=== PATIENT | female | born 1985 | race Hispanic/Latino ===

== ENCOUNTER 2017-01-11 08:01 | Emergency (ER) | payer MEDICAID, OTHER ==
[2017-01-11 08:07] VITALS: BP 118/76; PULSE 81; RESP 14; TEMP 99.2; O2SAT 99
--- NOTE | 2017-01-11 08:43 | C.PDOC ---
History Of Present Illness 31-year-old female, presents to the emergency department with complaints of a subjective fever, chills, and sore throat x2 days. Patient states she took Tylenol with no relief. Denies cough, shortness of breath, nausea/vomiting, diarrhea, cough, back pain, symptoms, or any other associated symptoms. No other complaints at this time. Time Seen by Provider: 01/11/17 08:24 Chief Complaint (Nursing): ENT Problem History Per: Patient History/Exam Limitations: no limitations Onset/Duration Of Symptoms: Days (2) Current Symptoms Are (Timing): Still Present Past Medical History Reviewed: Historical Data, Nursing Documentation, Vital Signs Vital Signs: Last Vital Signs Temp 99.2 F 01/11/17 08:04 Pulse 81 01/11/17 08:04 Resp 14 01/11/17 08:04 BP 118/76 01/11/17 08:04 Pulse Ox 99 01/11/17 08:49 Family History: States: Unknown Family Hx - Social History Hx Tobacco Use: No Hx Alcohol Use: No Hx Substance Use: No - Immunization History Hx Tetanus Toxoid Vaccination: No Hx Influenza Vaccination: No Hx Pneumococcal Vaccination: No Review Of Systems Except As Marked, All Systems Reviewed And Found Negative. Constitutional: Positive for: Fever, Chills ENT: Positive for: Throat Pain Respiratory: Negative for: Cough Gastrointestinal: Negative for: Nausea, Vomiting, Abdominal Pain Musculoskeletal: Negative for: Back Pain Neurological: Negative for: Weakness, Numbness, Headache, Dizziness Physical Exam - Physical Exam Appears: Non-toxic, No Acute Distress Skin: Warm, Dry, No Rash Head: Atraumatic, Normacephalic Eye(s): bilateral: Normal Inspection, EOMI Ear(s): Bilateral: Normal Nose: Normal Oral Mucosa: Moist Lips: Normal Appearing Throat: Erythema, Exudate (right tonsil), Other (swollen tonsils, non-kissing, uvula midline) Neck: Normal ROM, Supple, Other (no lymphadenopathy) Cardiovascular: Rhythm Regular Respiratory: Normal Breath Sounds, No Accessory Muscle Use Extremity: Normal ROM Neurological/Psych: Oriented x3, Normal Speech ED Course And Treatment O2 Sat by Pulse Oximetry: 99 Medical Decision Making Medical Decision Making: Impression: 31y/o F with sore throat c/w pharyngitis Plan: Patient will be discharged w/ Rx for antibiotics. Patient advised to f/u with PMD/clinic outpatient, or return if symptoms persist or worsen. Patient agreeable with plan. All questions were answered. Disposition Counseled Patient/Family Regarding: Need For Followup - Disposition Disposition: HOME/ ROUTINE Disposition Time: 08:35 Condition: STABLE Additional Instructions: Your prescription was sent to [facility] Take antibiotic twice daily Take Tylenol or Motrin alternating every 4-6 hours for Fever 100.4F or higher. Rest and drink plenty of fluids to prevent dehydration. Try vanilla ice cream to improve eating/drinking, this is cold soothing and tastes good. May also try lozenges or cepacol spray over the counter. Prescriptions: Amoxicillin [Amoxil 500 mg Cap] 500 mg PO BID #14 cap Instructions: Pharyngitis (ED) Forms: Work Excuse - POA Present On Arrival: None - Clinical Impression Clinical Impression: Pharyngitis - Scribe Statement The provider has reviewed the documentation as recorded by the Holly Arndt All medical record entries made by the Holly were at my direction and personally dictated by me. I have reviewed the chart and agree that the record accurately reflects my personal performance of the history, physical exam, medical decision making, and the department course for this patient. I have also personally directed, reviewed, and agree with the discharge instructions and disposition
== END 2017-01-11 08:55 | disposition home or self-care (01) ==
LOC: C.ER 08:01
DX: J02.9 Acute pharyngitis, unspecified (principal)

== ENCOUNTER 2017-03-28 20:08 | Emergency (ER) | payer OTHER ==
[2017-03-28 20:14] VITALS: O2SAT 100
--- NOTE | 2017-03-28 20:51 | C.PDOC ---
History Of Present Illness 31 y/o female c/o supraubic discomfort and foul vaginal discharge for 2 days. Patient also states that she feels her IUD is "hurting her". Denies fever, chills, nausea, vomiting. Time Seen by Provider: 03/28/17 20:46 Chief Complaint (Nursing): Abdominal Pain History Per: Patient History/Exam Limitations: no limitations Onset/Duration Of Symptoms: Days Current Symptoms Are (Timing): Still Present Severity: Mild Pain Scale Rating Of: 4 Location Of Pain/Discomfort: Diffuse Quality Of Discomfort: "Pain" Associated Symptoms: denies: Fever, Chills, Nausea, Vomiting, Back Pain, Urinary Symptoms Recent travel outside of the [place]: No Abnormal Vaginal Bleeding: No Past Medical History Reviewed: Historical Data, Nursing Documentation, Vital Signs Vital Signs: Last Vital Signs Temp 97.8 F 03/28/17 20:12 Pulse 65 03/28/17 20:12 Resp 16 03/28/17 20:12 BP 119/77 03/28/17 20:12 Pulse Ox 100 03/28/17 21:01 - Medical History PMH: No Chronic Diseases Family History: States: Unknown Family Hx - Social History Hx Tobacco Use: No Hx Alcohol Use: No Hx Substance Use: No - Immunization History Hx Tetanus Toxoid Vaccination: No Hx Influenza Vaccination: No Hx Pneumococcal Vaccination: No Review Of Systems Constitutional: Negative for: Fever, Chills Cardiovascular: Negative for: Chest Pain Respiratory: Negative for: Cough, Shortness of Breath Gastrointestinal: Positive for: Abdominal Pain. Negative for: Nausea, Vomiting , Diarrhea Genitourinary: Positive for: Vaginal Discharge, Pelvic Pain. Negative for: Dysuria, Hematuria Skin: Negative for: Rash Physical Exam - Physical Exam Appears: Non-toxic, No Acute Distress Skin: Warm, Dry Head: Atraumatic, Normacephalic Oral Mucosa: Moist Chest: Symmetrical Cardiovascular: Rhythm Regular, No Murmur Respiratory: Normal Breath Sounds, No Rales, No Rhonchi, No Wheezing Gastrointestinal/Abdominal: Soft, Tenderness (mild, suprapubic), No Distention, No Guarding, No Rebound Back: No CVA Tenderness Pelvic: Vaginal Discharge (whitish), No Cervical Motion Tenderness, No Adnexal Tenderness Extremity: Normal ROM, Capillary Refill (< 2 sec.) Extremity: Bilateral: Normal Color And Temperature Neurological/Psych: Oriented x3, Normal Speech, Normal Cognition ED Course And Treatment O2 Sat by Pulse Oximetry: 100 (RA) Pulse Ox Interpretation: Normal (R) Progress Note: Ultrasound ordered, reviewed. Disposition Counseled Patient/Family Regarding: Studies Performed, Diagnosis, Need For Followup, Rx Given - Disposition Referrals: [facility] [Outside] [facility] [Outside] Disposition: HOME/ ROUTINE Disposition Time: 20:50 Condition: FAIR Additional Instructions: Please return if symptoms recur Prescriptions: Fluconazole [Diflucan] 200 mg PO DAILY #5 tab Nitrofurantoin Macrocrystals [Macrobid] 1 cap PO BID #14 cap Instructions: Urinary Tract Infection in Women (DC), Vulvovaginal Candidiasis ( ED) - Clinical Impression Clinical Impression: UTI (urinary tract infection), [place] vaginitis, IUD (intrauterine device) in place - Scribe Statement The provider has reviewed the documentation as recorded by the Holly Harden Provider Attestation: All medical record entries made by the Maria De Jesusiburiel were at my direction and personally dictated by me. I have reviewed the chart and agree that the record accurately reflects my personal performance of the history, physical exam, medical decision making, and the department course for this patient. I have also personally directed, reviewed, and agree with the discharge instructions and disposition.
[2017-03-28 20:57] LABS: HCG,QUALITATIVE URINE NEGATIVE (NEGATIVE)
[2017-03-28 20:58] LABS: SQUAMOUS EPITHIAL 10 /hpf (0-5); URINE AMORPHOUS SEDIMENT RARE /ul (<OCC); URINE BACTERIA OCC (<OCC); URINE BILIRUBIN NEGATIVE (NEGATIVE); URINE BLOOD NEGATIVE (NEGATIVE); URINE CLARITY Hazy (Clear); URINE COLOR Yellow (YELLOW); URINE GLUCOSE (UA) NORMAL (Normal); URINE NITRATE NEGATIVE (NEGATIVE); URINE PROTEIN NEGATIVE (NEGATIVE)
[2017-03-28 20:59] LABS: URINE LEUKOCYTE ESTERASE 1+ Leu/uL (Negative)
--- NOTE | 2017-03-28 22:32 | US ---
EXAM: US Pelvis Complete, Transabdominal CLINICAL HISTORY: 31 years old, female; Pain; Pelvic pain; Additional info: Uterine pain, iud in place? TECHNIQUE: Real-time transabdominal pelvic ultrasound (complete) with image documentation. COMPARISON: No relevant prior studies available. FINDINGS: Uterus/cervix: An IUD is noted in the endometrium, appearing somewhat inferiorly located toward the lower uterine segment. Please correlate clinically and if indicated this could be correlated with additional imaging such as CT or MRI. Uterus measures 8.7 x 4.9 x 5.7 CM. Right ovary: Unremarkable. No mass. Normal blood flow. Left ovary: Unremarkable. No mass. Normal blood flow. Free fluid: No free fluid. Bladder: Unremarkable as visualized. Wall is normal thickness for degree of distention. IMPRESSION: An IUD is noted in the endometrium, appearing somewhat inferiorly located toward the lower uterine segment. Please correlate clinically and if indicated this could be correlated with additional imaging such as CT or MRI. EXAM: US Pelvis, Transvaginal CLINICAL HISTORY: 31 years old, female; Pain; Pelvic pain; Additional info: Uterine pain, iud in place? TECHNIQUE: Real-time transvaginal pelvic ultrasound (complete) with image documentation. Transvaginal imaging was used for better evaluation of the endometrium and adnexa. COMPARISON: No relevant prior studies available. FINDINGS: Uterus/cervix: An IUD is noted within the endometrium, appearing somewhat inferiorly located toward the lower uterine segment. Please correlate clinically and if indicated this could be correlated with additional imaging such as CT or MRI. Uterus measures 8.4 x 4.2 x 1.9 CM. Endometrial stripe at the fundus measures perhaps 0.8 CM. Right ovary: Right ovary measures 3.0 x 2.4 x 3.0 CM. Right ovary demonstrates normal waveforms. Normal blood flow. Left ovary: Left ovary measures 3.6 x 2.8 x 3.2 CM. Left ovary demonstrates normal waveforms. Normal blood flow. Free fluid: Small amount of free fluid in the cul-de-sac. Bladder: Empty bladder which cannot be evaluated with this probe. IMPRESSION: 1. An IUD is noted within the endometrium, appearing somewhat inferiorly located toward the lower uterine segment. Please correlate clinically and if indicated this could be correlated with additional imaging such as CT or MRI. 2. Small amount of free fluid in the cul-de-sac. 3. Grossly normal waveforms in both ovaries without convincing evidence for torsion.
[2017-03-28 22:42] VITALS: BP 114/76; PULSE 67; RESP 18; TEMP 98.3
== END 2017-03-28 22:43 | disposition home or self-care (01) ==
LOC: C.ER 20:08
DX: N39.0 Urinary tract infection, site not specified (principal); B37.3 Candidiasis of vulva and vagina; Z97.5 Presence of (intrauterine) contraceptive device

== ENCOUNTER 2017-05-26 21:12 | Emergency (ER) | payer OTHER ==
[2017-05-26 21:36] VITALS: BP 120/84; PULSE 83; RESP 16; TEMP 98.1; O2SAT 100
--- NOTE | 2017-05-26 22:31 | C.PDOC ---
History Of Present Illness 32 yr old female presents to the ER with complaints of left lower back pain, radiating to the left buttock and thigh since morning. Patient states now has tingling sensation to the left lower extremity, and pain is worse with walking. Patient reports history of sciatica during but states this feels different. Patient denies trauma, abdominal pain, dysuria, bowel or bladder incontinence, weakness or numbness. Time Seen by Provider: 05/26/17 22:01 Chief Complaint (Nursing): Lower Extremity Problem/Injury History Per: Patient History/Exam Limitations: no limitations Onset/Duration Of Symptoms: Sudden Onset (Since morning) Past Medical History Reviewed: Historical Data, Nursing Documentation, Vital Signs Vital Signs: Last Vital Signs Temp 98.1 F 05/26/17 21:34 Pulse 83 05/26/17 21:34 Resp 16 05/26/17 21:34 BP 120/84 05/26/17 21:34 Pulse Ox 100 05/26/17 22:34 Family History: States: No Known Family Hx - Social History Hx Tobacco Use: No Hx Alcohol Use: No Hx Substance Use: No - Immunization History Hx Tetanus Toxoid Vaccination: No Hx Influenza Vaccination: No Hx Pneumococcal Vaccination: No Review Of Systems Except As Marked, All Systems Reviewed And Found Negative. Gastrointestinal: Negative for: Abdominal Pain Genitourinary: Negative for: Dysuria, Incontinence Musculoskeletal: Positive for: Back Pain (Left lower back pain, radiating to the left buttock and thigh.) Neurological: Negative for: Weakness, Numbness Physical Exam - Physical Exam Appears: Non-toxic, No Acute Distress Skin: Warm, Dry, No Rash Head: No Atraumatic, No Normacephalic Eye(s): bilateral: Normal Inspection Oral Mucosa: Moist Gastrointestinal/Abdominal: Normal Exam, Soft, No Tenderness Back: No CVA Tenderness, Paraspinal Tenderness (left paralumbar area), Straight Leg Raising (+40 degree), Other Extremity: Normal ROM, No Calf Tenderness, No Swelling Extremity: Bilateral: Atraumatic Pulses: Left Dorsalis Pedis: Normal, Right Dorsalis Pedis: Normal Neurological/Psych: Oriented x3, Normal Speech, Normal Motor, Normal Sensation Gait: Steady ED Course And Treatment O2 Sat by Pulse Oximetry: 100 (RA) Pulse Ox Interpretation: Normal Progress Note: Pt improved after pain meds, and is fully ambulatory in ED Reevaluation Time: 22:51 Reassessment Condition: Improved Medical Decision Making Medical Decision Making: PLAN: * Flexeril PO * Motrin PO Disposition - Disposition Disposition: HOME/ ROUTINE Disposition Time: 22:52 Condition: STABLE Additional Instructions: Please follow up with PMD Take meds as directed Return to ER if worse Prescriptions: Cyclobenzaprine [Cyclobenzaprine HCl] 10 mg PO HS #10 tab Ibuprofen [Motrin] 600 mg PO Q6H #30 tab Instructions: Sciatica (ED) Forms: [employer] (Telugu) - Clinical Impression Clinical Impression: Lumbar radiculopathy - PA / TITLE SPECIALIST / Resident Statement MD/DO has reviewed & agrees with the documentation as recorded. - Scribe Statement The provider has reviewed the documentation as recorded by the Scribe Trisha Alberts All medical record entries made by the Maria De Jesusiburiel were at my direction and personally dictated by me. I have reviewed the chart and agree that the record accurately reflects my personal performance of the history, physical exam, medical decision making, and the department course for this patient. I have also personally directed, reviewed, and agree with the discharge instructions and disposition.
== END 2017-05-26 22:50 | disposition home or self-care (01) ==
LOC: C.ER 21:12
DX: M54.16 Radiculopathy, lumbar region (principal)

== ENCOUNTER 2017-11-26 15:43 | Emergency (ER) | payer OTHER ==
[2017-11-26 16:05] VITALS: RESP 20; O2SAT 100
--- NOTE | 2017-11-26 17:12 | C.PDOC ---
History Of Present Illness 32 year old female presents to the ED for evaluation of left lower molar pain which began yesterday. Patient had a cap placed to the area around 1 year ago. Patient took Tylenol with minimal relief. She denies fever, chills, facial swelling. Time Seen by Provider: 11/26/17 16:33 Chief Complaint (Nursing): Dental Pain History Per: Patient History/Exam Limitations: no limitations Onset/Duration Of Symptoms: Hrs Current Symptoms Are (Timing): Still Present Quality: Positive for: "Pain" Additional History Per: Patient Past Medical History Reviewed: Nursing Documentation, Vital Signs Vital Signs: Last Vital Signs Temp 98 F 11/26/17 17:30 Pulse 80 11/26/17 17:30 Resp 20 11/26/17 17:30 BP 130/70 11/26/17 17:30 Pulse Ox 100 11/26/17 22:29 - Medical History PMH: Cardia Arrhythmia Surgical History: No Surg Hx Family History: States: Unknown Family Hx - Social History Hx Tobacco Use: No Hx Alcohol Use: No Hx Substance Use: No - Immunization History Hx Tetanus Toxoid Vaccination: No Hx Influenza Vaccination: No Hx Pneumococcal Vaccination: No Review Of Systems Constitutional: Negative for: Fever, Chills ENT: Positive for: Mouth Pain (left lower molar ) Physical Exam - Physical Exam Appears: Non-toxic, No Acute Distress Skin: Normal Color, Warm, Dry Head: Atraumatic, Normacephalic, No Swelling (facial ) Eye(s): bilateral: Normal Inspection Oral Mucosa: Moist Teeth: No Caries, Tender To Palpation (#19) Gingiva: No Swelling Neurological/Psych: Oriented x3, Normal Speech, Normal Cognition ED Course And Treatment O2 Sat by Pulse Oximetry: 100 (on RA ) Pulse Ox Interpretation: Normal Medical Decision Making Medical Decision Making: Progress: Toradol IM administered. On reassessment, patient is resting comfortably, showing no signs of distress and reports an improvement in her symptoms. Patient is stable for discharge and is advised to f/u with dental care within 1-2 days for further evaluation. Disposition Counseled Patient/Family Regarding: Diagnosis, Need For Followup - Disposition Disposition: HOME/ ROUTINE Disposition Time: 17:12 Condition: GOOD Additional Instructions: Please take ibuprofen every 6 hours by mouth for pain if needed. Follow up as soon as possible with a dentist. Return to Er for any worse symptoms. Prescriptions: Ibuprofen [Motrin] 600 mg PO TID #30 tab Instructions: Dental Pain (DC) Forms: [facility] (Y[place]i), General Discharge Instructions - Clinical Impression Clinical Impression: Toothache - PA / HOP SEPARATOR / Resident Statement MD/DO has reviewed & agrees with the documentation as recorded. - Scribe Statement The provider has reviewed the documentation as recorded by the Scribe (Carlotta Greene) All medical record entries made by the Scribe were at my direction and personally dictated by me. I have reviewed the chart and agree that the record accurately reflects my personal performance of the history, physical exam, medical decision making, and the department course for this patient. I have also personally directed, reviewed, and agree with the discharge instructions and disposition.
[2017-11-26 17:31] VITALS: BP 130/70; PULSE 80; TEMP 98
== END 2017-11-26 17:30 | disposition home or self-care (01) ==
LOC: C.ER 15:43
DX: K08.89 Other specified disorders of teeth and supporting structures (principal)
CPT/HCPCS: 96372; 99283; J1885

== ENCOUNTER 2018-10-07 14:24 | Emergency (ER) | payer OTHER ==
[2018-10-07 14:43] VITALS: TEMP 98.1
--- NOTE | 2018-10-07 15:09 | C.PDOC ---
History Of Present Illness 33 year old male presents to the ED for an evaluation of sore throat x 3 days. Pain is worse with swallowing. Denies recent travels but reports son is also sick with same symptoms, also being seen here in the ED. Tolerating PO and having BM per baseline. Associated mild frontal headache. Patient did not receive flu vaccination this season. Denies fever, chills, cough, ear pain, shortness of breath, chest pain, abdominal pain, N/V, back pain, dizziness, neck pain/stiffness, or any other associated symptoms. Time Seen by Provider: 10/07/18 14:45 Chief Complaint (Nursing): ENT Problem History Per: Patient History/Exam Limitations: no limitations Onset/Duration Of Symptoms: Days Current Symptoms Are (Timing): Still Present Past Medical History Reviewed: Historical Data, Nursing Documentation, Vital Signs Vital Signs: Last Vital Signs Temp 98.1 F 10/07/18 14:41 Pulse 75 10/07/18 14:41 Resp 20 10/07/18 14:41 BP 108/73 10/07/18 14:41 Pulse Ox 98 10/07/18 14:41 - Medical History PMH: Cardia Arrhythmia, Deep Vein Thrombosis (Left leg) Surgical History: No Surg Hx Family History: States: No Known Family Hx - Social History Hx Tobacco Use: No Hx Alcohol Use: No Hx Substance Use: No - Immunization History Hx Tetanus Toxoid Vaccination: No Hx Influenza Vaccination: No Hx Pneumococcal Vaccination: No Review Of Systems Except As Marked, All Systems Reviewed And Found Negative. Constitutional: Negative for: Fever, Chills Eyes: Negative for: Vision Change ENT: Positive for: Throat Pain. Negative for: Ear Pain Cardiovascular: Negative for: Chest Pain, Palpitations, Light Headedness Respiratory: Negative for: Cough, Shortness of Breath Gastrointestinal: Negative for: Nausea, Vomiting, Diarrhea Musculoskeletal: Negative for: Neck Pain, Back Pain Skin: Negative for: Rash Neurological: Positive for: Headache. Negative for: Weakness, Numbness, Dizziness Physical Exam - Physical Exam Appears: Non-toxic, No Acute Distress Skin: Warm, Dry, No Rash Head: Normacephalic Eye(s): bilateral: Normal Inspection Ear(s): Bilateral: Normal Nose: Normal Oral Mucosa: Moist Tongue: Normal Appearing Lips: Normal Appearing Teeth: Normal Dentition Gingiva: Normal Appearing Throat: Erythema (B/L tonsils ), Exudate (B/L tonsils ) Neck: Supple Chest: Symmetrical Cardiovascular: Rhythm Regular Respiratory: Normal Breath Sounds, No Rales, No Rhonchi, No Wheezing Neurological/Psych: Oriented x3, Normal Speech Gait: Steady ED Course And Treatment O2 Sat by Pulse Oximetry: 98 (RA) Pulse Ox Interpretation: Normal Medical Decision Making Medical Decision Making: Initial plan * Tylenol 650mg PO * Rapid Strep Rapid strep negative, will treat because son positive for strep and pt has similar symptoms. Diagnostic testing results and plan of care discussed with patient. Strict instructions given regarding prescription use, importance of followup, and signs/symptoms to return to ER including fever, vision changes, dizziness, or any other new/worsening symptoms. Pt verbalized understanding of discussion. Patient is A&Ox3, ambulating with steady gait, with vital signs stable for discharge. Disposition - Disposition Referrals: [facility] [Outside] Disposition: HOME/ ROUTINE Disposition Time: 16:45 Condition: IMPROVED Additional Instructions: Amoxicillin every 12 hours for 10 days Increase fluids Ibuprofen/tylenol for pain Followup with primary doctor tomorrow Return to ER with any new/worsening symptoms Prescriptions: Amoxicillin 500 mg PO Q12H 10 Days #19 tab Instructions: Sore Throat, Adult (DC) Forms: General Discharge Instructions, [facility] (Vietnamese), Work Excuse - Clinical Impression Clinical Impression: Pharyngitis - PA / BATTERY TECHNICIAN / Resident Statement MD/DO has reviewed & agrees with the documentation as recorded. - Scribe Statement The provider has reviewed the documentation as recorded by the Scribe Angelita Calderon All medical record entries made by the Maria De Jesusiburiel were at my direction and personally dictated by me. I have reviewed the chart and agree that the record accurately reflects my personal performance of the history, physical exam, medical decision making, and the department course for this patient. I have also personally directed, reviewed, and agree with the discharge instructions and disposition.
[2018-10-07 16:56] VITALS: BP 107/72; PULSE 71; RESP 18
[2018-10-07 16:57] VITALS: O2SAT 98
== END 2018-10-07 16:56 | disposition home or self-care (01) ==
LOC: C.ER 14:24
DX: J02.9 Acute pharyngitis, unspecified (principal)